=== PATIENT | male | born 1945 | race Caucasian/White ===

== ENCOUNTER → 2016-10-29 | Outpatient (CLI) | payer MEDICARE, BC ==
[~2016-10-29] MED LIST: ACTOS PO; ALLOPURINOL300 MG PO; AMLODIPINE BESY10 MG PO; ASPIRIN PO; ASPIRIN81 M1 PO; ATORVASTATIN CA80 MG PO; AUGMENTIN1 TAB.SR1 PO; B COMPLEX1 CA1 PO; BACTRIM DS TABL1 TAB PO; BAYER ASPIRIN325 M1 PO; BENAZEPRIL PO; CARAFATE1 G PO; CATAPRES-TTS-20.2 MG PO; CENTRUM PO; CERTAGEN PO; CLONIDINE HCL PO; CLONIDINE PO; COLCHICINE PO; COZAAR PO; DETEMIR SUBQ; DISOPYRAMIDE PO; FENOFIBRATE67 MG PO; FENOGLIDE40 MG PO; FEROSUL325 ( 651 PO; FERRO-TIME325 MG PO; FERROUS SULFATE1 TAB PO; FISH OIL 1,0001 CAP PO; FISH OIL 1,0001 EACH PO; FISH OIL 10001000 MG PO; FLEXERIL10 MG PO; GABAPENTIN300 MG PO; GLUCOPHAGE XR500 MG PO; GLUCOTROL10 MG PO; HCTZ PO; HYDRALAZINE HC100 MG PO; HYDRALAZINE HCL50 MG PO; HYDROCODON-ACE1 EAC7 PO; HYDROCODON-ACE1 EACH; INSULIN HUMAN SUBQ; JANUVIA100 MG PO; KETOPROFEN PO; LASIX20 MG PO; LEVEMIR SUBQ; LEVEMIR100 UNITS/ SUBQ; LIPITOR PO; LOC PO; MAOX420 MG PO; METFORMIN PO; METOPROLOL SUC200 MG PO; MULTIVITAMIN1 UDCAP PO; MYCOSTATIN POWD30 GM EXT; NEURONTIN PO; NEURONTIN600 MG PO; NIASPAN PO; NORCO 7.5-3251 EACH PO; NORPACE100 MG PO; NORVASC10 MG PO; NORVASC2.5 MG PO; NOVOLIN 70/30 V10 M1 SUBQ; NOVOLOG100 U/ML SUBQ; OMEPRAZOLE20 M1 PO; OMEPRAZOLE20 M2 PO; PERCOCET 5-3251 TAB PO; PHENERGAN25 M1 PO; PLAVIX PO; PRAVACHOL80 MG PO; PRAVASTATIN SOD40 MG PO; PRAVASTATIN SOD80 MG PO; PRILOSEC PO; PRILOSEC20 MG PO; TED HOSE; TOPROL XL PO; TRILIPIX135 MG PO; VICODIN PO; VITAMIN B-COMPL1 CA1 PO; ZESTRIL40 MG PO; ZYLOPRIM PO; [UNRECOGNIZED DRUG - OTHER] SUBQ; [UNRECOGNIZED DRUG - REMARK]
--- NOTE | ~2016-10-29 | CT52 ---
[facility] A Service of [facility] & [facility] RADIOLOGY TEXT RESULTS PATIENT: ANDREW FLOYD LOCATION: [facility] : 43 UNIT #: [id number] AGE: [address]: Lex Escobar MD SEX: M ORDER DR: [id number] [facility] [address] [place], [place] [address] [id number] O MR#: [id number] Acc #: [id number] NAME: ANDREW FLOYD : 1945 SEX: M STUDY DATE/TIME: 10/29/2016 17:07 UNIT: [facility] ROOM: STUDY DESCRIPTION: CT Cervical Spine Wo Cont Attending Physician: Lex Escobar M.D. Referring Physician: Lex Escobar M.D. Ordering Physician: Lex Escobar M.D. Primary Care Physician: Lex Escobar M.D. MEDICAL IMAGING REPORT This report is preliminary unless electronic signature is present EXAM Cervical spine CT without HISTORY Fell 5 days ago, fell out of bed; hit the left side of his head. Blurred vision left eye, numbness left side of head, pain left side of neck, headache. COMMENT This CT exam was performed with one or more of the following radiation dose reduction techniques: Automatic exposure control, adjustment of mA and/or kV according to patient size, and iterative reconstruction. CT of the cervical spine performed in the axial plane without contrast followed by sagittal and coronal reconstructed images. There is an MRI of the cervical spine pending druze from 2011. There is approximately 2 mm of degenerative anterolisthesis of C4 on C5 secondary to facet arthritis. There is multiple-level endplate spondylosis most apparent at C6-7, with loss of intervertebral disc height. The endplates are irregular at the 6-7 level with Schmorl node formation. These changes are present on the MRI from 2011 but appear to be significantly progressed. This is probably due to progression of degenerative disc disease. Please exclude any clinical concern for discitis. This is felt less likely. 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 Milder posterior longitudinal ligament ossification at C2, C3, C4. Also some ossification of the anterior longitudinal ligament multiple levels. No acute appearing cervical spine fracture or traumatic malalignment is suspected. There is particular arthritis at the atlantodental interval anteriorly with STS. [facility] A Service of [facility] & [facility] RADIOLOGY TEXT RESULTS PATIENT: ANDREW FLOYD LOCATION: [facility] : 43 UNIT #: [id number] AGE: [address]: Lex Escobar MD SEX: M ORDER DR: subchondral cyst formation. CT scanning is considerably less sensitive than MRI for assessment of soft tissue abnormalities. Limited assessment of degenerative disease is, therefore, as follows: At C2-3, small central disc protrusion associated with some ossification of the posterior longitudinal ligament results in mild flattening of the cord. No bony foraminal compromise. At C3-4, there is endplate spondylosis, ossification of anterior and posterior longitudinal ligament and a broad central protrusion/extrusion such that there is probably severe cord flattening and canal stenosis, and I would recommend reassessment with a followup MRI if the patient is still a candidate. Disease was present at this level previously. There is also fairly severe asymmetric left-sided facet degenerative change and bilateral uncovertebral osteophyte formation with severe left side bony foraminal narrowing and mild right side bony foraminal narrowing. At C4-5, severe right-sided facet degenerative change, moderate left side facet degenerative change accounts for the degenerative anterolisthesis of C4 on C5. There is a broad posterior disc protrusion likely with bilateral uncovertebral osteophytes. Suspect [id number] cord flattening and canal stenosis and at least moderate bony foraminal narrowing bilaterally. At C5-6, there is severe facet degenerative change on the left, [id number] facet degenerative change on the right. 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 There is associated bony canal compromise, with the AP dimension of remaining canal about 1 cm. Soft tissue of the canal not well assessed. There is additionally at least moderate bony foraminal narrowing on the left, mild bony foraminal narrowing on the right. At C6-7, ossification of the posterior longitudinal ligament results in mild bony canal compromise. Cannot assess the soft tissues well. There is some facet degenerative change bilaterally and uncovertebral osteophyte formation bilaterally, with mild left-sided bony foraminal narrowing. At C7-T1, there is severe asymmetric right-sided facet degenerative change, more moderate left-sided facet degenerative change with no bony canal stenosis or significant bony foraminal compromise. Nonspecific low-attenuation lesion noted in the right lobe of the thyroid gland about 1.3 cm in diameter, best characterized further with a non-emergent ultrasound thyroid gland. No prevertebral fluid is suspected. IMPRESSION 1. There is no evidence for acute appearing cervical spine fracture or STS. [facility] A Service of [facility] RADIOLOGY TEXT RESULTS PATIENT: ANDREW FLOYD LOCATION: [facility] : 43 UNIT #: [id number] AGE: [address]: Lex Escobar MD SEX: M ORDER DR: traumatic malalignment. 2. This patient has severe degenerative changes as well as ossification of the posterior longitudinal ligament such that there is multiple-level canal stenosis and foraminal compromise. Canal stenosis appears to be most severe at the C3-4 level due to combination of findings, including a disc extrusion and at the C5-6 level due to a quite prominent ossification of the posterior longitudinal ligament. If the patient is still a candidate for an MRI, I would recommend followup MRI to reassess the status of the cord and degree of soft tissue canal compromise. 3. There is interval apparent progression of degenerative disc disease and endplate irregularities at the level of C6-7. I believe this is due to worsening degenerative disc disease since findings were present on the study from 2011, but please exclude any clinical concern for less likely scenario of discitis. 4. Low-attenuation lesion right lobe of the thyroid gland is nonspecific and best characterized with a non-emergent followup ultrasound thyroid gland. Dictated by... Dawna Unger M.D. THIS IS AN ELECTRONICALLY VERIFIED REPORT Dawna Unger M.D. at 10/30/2016 8:07 AM TALON/kerry TD: 10/29/2016 22:03 JOB #: [id number] MEDICAL IMAGING REPORT Page 1 of 1 COPY
--- NOTE | ~2016-10-29 | CT71 ---
[facility] A Service of [facility] RADIOLOGY TEXT RESULTS PATIENT: ANDREW FLOYD [facility] : 44 UNIT #: [id number] AGE: [address]: Lex Escobar MD SEX: M ORDER DR: [id number] [address] [address] [id number] O MR#: [id number] Acc #: [id number] NAME: ANDREW FLOYD : 1945 SEX: M STUDY DATE/TIME: 10/29/2016 16:57 UNIT: [facility] ROOM: STUDY DESCRIPTION: CT Head Wo Contrast Attending Physician: Lex Escobar M.D. Referring Physician: Lex Escobar M.D. Ordering Physician: Lex Escobar M.D. Primary Care Physician: Lex Escobar M.D. MEDICAL IMAGING REPORT This report is preliminary unless electronic signature is present EXAM Noncontrast head CT HISTORY Fell out of bed 5 days ago, hit left side of head, blurred vision. COMPARISON Head CT 03/24/[address] exam was performed with one or more of the following radiation dose reduction techniques: automatic exposure control, adjustment of mA and/or kV according to patient size, and iterative reconstruction. FINDINGS Axial noncontrast imaging of the brain demonstrates generalized atrophy. No mass or mass effect or hemorrhage. Bony calvaria, skull base, mastoids and sinuses unremarkable. IMPRESSION No acute intracranial abnormality identified. Mild generalized atrophy. Dictated by... Tracy Underwood M.D. THIS IS AN ELECTRONICALLY VERIFIED REPORT Tracy Underwood M.D. at 10/30/2016 6:36 PM JMS/lamonte TD: 10/29/2016 21:51 JOB #: [id number] MEDICAL IMAGING REPORT [facility] A Service [facility] RADIOLOGY TEXT RESULTS PATIENT: ANDREW FLOYD [facility] : 44 UNIT #: [id number] AGE: [address]: Lex Escobar MD SEX: M ORDER DR: Page 1 of 1 COPY
== END | disposition home or self-care (01) ==
LOC: CCAT 16:48
DX: R51 Headache (principal); M54.2 Cervicalgia; M50.222 Other cervical disc displacement at C5-C6 level; M50.323 Other cervical disc degeneration at C6-C7 level; M47.812 Spondylosis without myelopathy or radiculopathy, cervical region; M48.02 Spinal stenosis, cervical region; E07.89 Other specified disorders of thyroid; G31.9 Degenerative disease of nervous system, unspecified
CPT/HCPCS: 70450; 72125

== ENCOUNTER → 2017-02-01 | Outpatient (CLI) | payer MEDICARE, BC ==
--- NOTE | ~2017-02-01 | US136 ---
[facility] A Service of [facility] & [facility] RADIOLOGY TEXT RESULTS PATIENT: ANDREW FLOYD LOCATION: [facility] : 43 UNIT #: [id number] AGE: [address]: Jil Baumann MD SEX: M ORDER DR: [id number] [facility] [address] [place], [place] [address] [id number] O MR#: [id number] Acc #: [id number] NAME: ANDREW FLOYD : 1945 SEX: M STUDY DATE/TIME: 02/01/2017 10:29 UNIT: [facility] ROOM: STUDY DESCRIPTION: US U/L Ext Art Study Ltd Bil Attending Physician: Jil Baumann M.D. Referring Physician: Jil Baumann M.D. Ordering Physician: Jil Baumann M.D. Primary Care Physician: Lex Escobar M.D. MEDICAL IMAGING REPORT This report is preliminary unless electronic signature is present EXAM Ankle-brachial indices HISTORY Peripheral vascular disease with stenosis. FINDINGS Waveforms are normal at the right ankle and moderately abnormal at the left ankle. Right brachial pressure is 143 and left brachial pressure is 141. On the right side, dorsalis pedis is 128, posterior tibial 138, great toe is 84 for a right ankle-brachial index of 0.97. On the left side, posterior tibial is 103, dorsalis pedis 96, great toe is 58 for a left ankle-brachial index of 0.72. IMPRESSION Normal perfusion is seen in the right lower extremity with PEGGY of 0.97. Moderate peripheral vascular disease is seen in the left lower extremity with ankle-brachial index of 0.72. Dictated by... Florentin Hernández M.D. THIS IS AN ELECTRONICALLY VERIFIED REPORT Florentin Hernández M.D. at 02/02/2017 7:14 AM /kerry TD: 02/01/2017 21:44 JOB #: [id number] MEDICAL IMAGING REPORT Page 1 of 1 COPY
--- NOTE | ~2017-02-01 | US82 ---
[facility] A Service of [facility] & [facility] RADIOLOGY TEXT RESULTS PATIENT: ANDREW FLOYD LOCATION: [facility] : 43 UNIT #: [id number] AGE: [address]: Jil Baumann MD SEX: M ORDER DR: [id number] [facility] [address] [place], [place] [address] [id number] O MR#: [id number] Acc #: [id number] NAME: ANDREW FLOYD. : 1945 SEX: M STUDY DATE/TIME: 02/01/2017 10:55 UNIT: [facility] ROOM: STUDY DESCRIPTION: US LE Art/Art Grafts Comp Francesco Attending Physician: Jil Baumann M.D. Referring Physician: Jil Baumann M.D. Ordering Physician: Jil Baumann M.D. Primary Care Physician: Lex Escobar M.D. MEDICAL IMAGING REPORT This report is preliminary unless electronic signature is present EXAM Bilateral lower extremity arterial duplex HISTORY Left pop-tib bypass graft 1995. FINDINGS Duplex of the right lower extremity reveals triphasic waveforms in the right common femoral artery with velocity of 158 cm/sec. On the right, the SFA is patent with biphasic waveforms and is the profunda femoral artery. Velocities are normal at the right proximal, mid and distal SFA, and popliteal artery is 84 cm/sec. Normal waveforms are seen in the tibioperoneal trunk posterior tibial artery, and blunted waveforms are seen in the anterior tibial artery. Velocity in the right proximal SFA is 138, mid is 101, distally it is 164, popliteal artery 84, posterior tibial artery 93, anterior tibial artery 59. On the left side, the common femoral artery is patent with velocity of 109 cm/sec. The superficial femoral artery appears to be patent with a velocity of 108 cm/sec in the mid portion. Popliteal artery is patent with a velocity of 47 cm/sec. A bypass graft is not clearly seen. Posterior tibial artery has a velocity of 55 cm/sec. IMPRESSION Normal arterial duplex of the right lower extremity with no stenosis. The left lower extremity arterial duplex shows patent femoral, popliteal and posterior tibial arteries with no bypass noted. Clinical correlation is recommended. Dictated by... [facility] A Service of [facility] & [facility] RADIOLOGY TEXT RESULTS PATIENT: ANDREW FLOYD LOCATION: [facility] : 43 UNIT #: [id number] AGE: [address]: Jil Baumann MD SEX: M ORDER DR: Florentin Hernández M.D. THIS IS AN ELECTRONICALLY VERIFIED REPORT Florentin Hernández M.D. at 02/02/2017 7:15 AM /kerry TD: 02/01/2017 22:19 JOB #: [id number] MEDICAL IMAGING REPORT Page 1 of 1 COPY
== END | disposition home or self-care (01) ==
LOC: CNIV 10:20
DX: I65.23 Occlusion and stenosis of bilateral carotid arteries (principal); I73.9 Peripheral vascular disease, unspecified
CPT/HCPCS: 93922; 93925